=== PATIENT | female | born 1950 | race Caucasian/White ===

== ENCOUNTER 2019-09-29 15:08 | Inpatient (IN) ==
[2019-09-29] MEDS ORDERED: Fluticasone Propionate Nasal 50 MCG/SPRAY BOTTLE NS PRN (17:00)
[2019-09-29] MEDS ORDERED: Acetaminophen 325 MG TABLET PO PRN (17:00)
[2019-09-29] MEDS ORDERED: ACID PO SCH (17:00)
[2019-09-29] MEDS ORDERED: diazePAM 2 MG TABLET PO PRN (17:00)
[2019-09-29] MEDS ORDERED: clonazePAM 1 MG TABLET PO PRN (17:00)
[2019-09-29] MEDS ORDERED: [UNRECOGNIZED DRUG - OTHER] PO SCH (17:00)
[2019-09-29] MEDS ORDERED: Bisacodyl 10 MG RECTAL SUPPOSITORY RC PRN (17:01)
[2019-09-29] MEDS ORDERED: Lactulose Oral Soln 20 GM/30 ML UDC PO PRN (17:01)
[2019-09-29] MEDS: polyethylene glycoL 3350 17 GM POWD.PACK PO SCH (17:45)
[2019-09-29] MEDS: *HR* OxyCODONE Immed Rel 5 MG TABLET PO PRN (17:45)
[2019-09-29] MEDS: rOPINIRole 1 MG TABLET PO SCH (21:04)
[2019-09-29] MEDS: Sennosides/Docusate Sodium TABLET PO SCH (21:04)
[2019-09-30] MEDS: *HR* OxyCODONE Immed Rel 5 MG TABLET PO PRN ×2 (00:07→06:05)
[2019-09-30] MEDS: *HR* Enoxaparin 40 MG/0.4 ML SYRINGE SQ SCH (05:36)
[2019-09-30 05:41] LABS: Basophils # 0.1 K/mcL (0.0-0.2); Basophils % 1.1 %; Eosinophils # 0.3 K/mcL (0.0-0.6); Eosinophils % 7.2 %; Hematocrit 30.4 % (35.3-44.9); Hemoglobin 10.2 g/dL (11.5-15.4); Immature Granulocytes % 0.2 % (0-4); Lymphocytes # 0.9 K/mcL (0.6-4.6); Lymphocytes % 21.3 %; Mean Corpuscular HGB Conc 33.6 g/dL (31.6-35.5); Mean Corpuscular Volume 92.4 fL (83.0-100.0); Mean Platelet Volume 9.1 fL (9.4-12.4); Monocytes # 0.6 K/mcL (0.0-1.3); Monocytes % 12.7 %; Neutrophils # 2.5 K/mcL (1.6-8.9); Platelet Count 336 K/mcL (140-400); Red Blood Count 3.29 M/mcL (3.82-4.97); Red Cell Distribution Width 12.2 % (11.5-14.5); Segmented Neutrophils % 57.5 %; White Blood Count 4.4 K/mcL (4.3-11.1)
[2019-09-30 05:56] LABS: BUN/Creatinine Ratio 12 (6-26); Blood Urea Nitrogen 8 mg/dL (8-23); Calcium 9.1 mg/dL (8.6-10.3); Carbon Dioxide 31 mEq/L (23-29); Chloride 99 mEq/L (98-107); Glucose 99 mg/dL (70-105); Osmolality,Calculated 278 (280-300); Potassium 4.1 mEq/L (3.5-5.1); Sodium 135 mEq/L (136-145); eGFR For African Americans > 60 (> 60); eGFR For Non-African Americans > 60 (> 60)
[2019-09-30] MEDS: polyethylene glycoL 3350 17 GM POWD.PACK PO SCH (08:17)
[2019-09-30] MEDS: Sennosides/Docusate Sodium TABLET PO SCH ×2 (08:17→20:55)
[2019-09-30] MEDS: rOPINIRole 1 MG TABLET PO SCH ×2 (08:17→20:54)
[2019-09-30] MEDS: Lactobacillus 1 EACH CAP.SPRINK PO SCH (14:29)
[2019-10-01] MEDS: *HR* OxyCODONE Immed Rel 5 MG TABLET PO PRN ×2 (06:04→13:05)
[2019-10-01] MEDS: *HR* Enoxaparin 40 MG/0.4 ML SYRINGE SQ SCH (06:06)
[2019-10-01] MEDS: Sennosides/Docusate Sodium TABLET PO SCH ×2 (08:00→20:29)
[2019-10-01] MEDS: Lactobacillus 1 EACH CAP.SPRINK PO SCH (08:00)
[2019-10-01] MEDS: polyethylene glycoL 3350 17 GM POWD.PACK PO SCH (08:01)
[2019-10-01] MEDS: rOPINIRole 1 MG TABLET PO SCH ×2 (13:05→20:29)
[2019-10-02] MEDS: *HR* Enoxaparin 40 MG/0.4 ML SYRINGE SQ SCH (06:27)
[2019-10-02 07:42] VITALS: BP 102/52
[2019-10-02] MEDS: Lactobacillus 1 EACH CAP.SPRINK PO SCH (09:05)
[2019-10-02] MEDS: Sennosides/Docusate Sodium TABLET PO SCH (09:06)
[2019-10-02] MEDS: polyethylene glycoL 3350 17 GM POWD.PACK PO SCH (09:06)
== END 2019-10-02 14:35 | disposition home health service (06) | DRG 561 ==
LOC: INPGRE 16:40
PROVIDERS: ADMIT Family Medicine; ATTEND Family Medicine